=== PATIENT | male | born 1955 | race Caucasian/White ===

== ENCOUNTER 2017-03-20 16:03 | Emergency (ER) | payer OTHER ==
[2017-03-20] MEDS ORDERED: Albuterol 2.5 MG/3 ML NEB.SOL* (0.083%) INH ONE (19:04)
[2017-03-20] MEDS ORDERED: Ipratropium 0.5MG/2.5ML NEB* 0.5 MG/2.5 ML NEB.SOLN INH ONE (19:04)
[2017-03-20] MEDS ORDERED: guaiFENesin/CODIEN 100MG-10MG* 5 ML UDC PO ONE (19:35)
[2017-03-20] MEDS ORDERED: Acetaminop/Codeine 30 MG TAB* 1 TAB (300 MG/30 MG) PO ONE (19:51)
[2017-03-20 19:59] VITALS: BP 129/79
--- NOTE | 2017-03-20 20:18 | UC ---
Respiratory Complaint HPI - History of Current Complaint Chief Complaint: UCRespiratory Stated Complaint: COUGH Time Seen by Provider: 03/20/17 18:29 Hx Obtained From: Patient Onset/Duration: Gradual Onset, Lasting Days - 3 Timing: Constant Severity Initially: Moderate Severity Currently: Moderate Character: Cough: Nonproductive Aggravating Factors: Deep Breaths, Recumbent Position Alleviating Factors: Upright Position Associated Signs And Symptoms: Positive: Pleuritic Chest Pain, URI. Negative: Dyspnea, Fever, Chills, Nasal Congestion, Sinus Discomfort - Allergies/Home Medications Allergies/Adverse Reactions: Allergies Allergy/AdvReac Type Severity Reaction Status Date / Time No Known Allergies Allergy Verified 03/20/17 17:56 Home Medications: Home Medications Dextromethorphan-Phenylephrine [Es-Fenton Plus Day Col] 2 cap PO ONCE PRN 05/01 [History Confirmed 03/20/17] Naproxen [Naproxen 500 MG TABS] 1,000 mg PO DAILY PRN 03/20/17 [History Confirmed 03/20/17] Pseudoephedrine TAB* [Sudafed TAB*] 30 mg PO Q6H PRN 03/20/17 [History Confirmed 03/20/17] PMH/Surg Hx/FS Hx/Imm Hx Endocrine History Of: Reports: Diabetes - TYPE II - ON ORAL MEDICATION FOR Cardiovascular History Of: Denies: Hypertension, Pacemaker/ICD GI/ History Of: Denies: Renal Disease Psychological History Of: Reports: Anxiety - ON MEDICATION FOR, Depression - ON MEDICATION FOR - Surgical History Surgical History: Yes Surgery Procedure, Year, and Place: Rt. Surgery shoulder - TORN ROTATOR 2015. LASIX -EYE. vasectomly. L rotator cuff repair - Family History Known Family History: Positive: Cardiac Disease Negative: Hypertension, Diabetes - Social History Occupation: Employed Full-time Lives: With Family Alcohol Use: Occasionally Substance Use Type: None Smoking Status (MU): Former Smoker Type: Smokeless Tobacco Amount Used/How Often: nicorette gum daily Length of Time of Smoking/Using Tobacco: 20 yrs Have You Smoked in the Last Year: No Review of Systems Constitutional: Negative Skin: Negative Eyes: Negative ENT: Sore Throat, Nasal Discharge Respiratory: Cough Cardiovascular: Chest Pain - PLEURITIC Gastrointestinal: Negative Musculoskeletal: Myalgia Neurological: Negative Psychological: Negative All Other Systems Reviewed And Are Negative: Yes Physical Exam Triage Information Reviewed: Yes Appearance: Well-Appearing, No Pain Distress, Well-Nourished Vital Signs: Initial Vital Signs Temp 99.8 F 03/20/17 18:00 Pulse 90 03/20/17 18:00 Resp 18 03/20/17 18:00 BP 134/73 03/20/17 18:00 Pulse Ox 97 03/20/17 18:00 Vital Signs Reviewed: Yes Eyes: Positive: Conjunctiva Clear. Negative: Discharge ENT: Positive: Hearing grossly normal, Pharyngeal erythema, Nasal drainage, TMs normal. Negative: Nasal congestion, Tonsillar swelling, Trismus, Muffled/ hoarse voice Neck: Positive: Supple, Nontender, No Lymphadenopathy Respiratory: Positive: No respiratory distress, No accessory muscle use, Wheezing - FEW SCATTERED WHEEZES Cardiovascular: Positive: RRR, No Murmur Musculoskeletal Exam: Normal Neurological: Positive: Alert, Muscle Tone Normal Psychological: Positive: Age Appropriate Behavior Skin Exam: Normal UC Diagnostic Evaluation - Laboratory O2 Sat by Pulse Oximetry: 97 Respiratory Course/Dx - Course Course Of Treatment: pt with dusty given robitussin with codeine. decision made based on fact that pt sleep with cpap each night to maintain airway. further pt took vicodin s/p shoulder surg within the past year while on cpap with no complications. - Differential Dx/Diagnosis Differential Diagnosis/HQI/PQRI: Bronchitis, Lower Resp Infection, Sinusitis Provider Diagnoses: URI, BRONCHOSPASM Discharge - Discharge Plan Condition: Stable Disposition: HOME Prescriptions: Albuterol HFA INHALER* [Ventolin HFA Inhaler*] 2 puff INH Q4H PRN #1 mdi PRN Reason: Sob/Wheezing Benzonatate CAP* [Tessalon 100 MG CAP*] 100 mg PO TID #30 cap guaiFENesin ER TAB [Mucinex*] 600 mg PO BID PRN #1 box PRN Reason: Cough guaiFENesin/CODIEN 100MG-10MG* [Robitussin AC 100Mg-10Mg*] 5 - 10 ml PO BEDTIME PRN #100 udc MDD 10ml PRN Reason: Cough Patient Education Materials: Upper Respiratory Infection (ED), Bronchospasm (ED ) Referrals: Hossein Asencio MD [Primary Care Provider] - (FOLLOW UP ON 03/23/17 PLANNED.) Additional Instructions: INHALED BRONCHODILATORS: You have received a prescription for an inhaled bronchodilator -- a medication which stimulates the airways in the lung to dilate. This improves the flow of air in asthma, bronchitis, and emphysema. These medicines have some similarity to adrenaline, and can cause similar side effects: shakiness, racing heart, and a sense of nervousness. These side effects decrease with time. Contact your doctor if these side effects are severe. Do not over-use the medicine. Too-frequent use of the inhaler may make it ineffective. Call your doctor if the inhaler is not controlling your symptoms at the prescribed doses. COUGH-SUPPRESSANT & EXPECTORANT MEDICATION: You are to use a cough medication as needed for relief of symptoms. This medicine is a combination of an expectorant (to make the mucous thinner and more easily "coughed up") and a cough suppressant (to reduce the frequency of coughing). The cough-suppressant medicine is related to narcotics. You may experience mild nausea and sleepiness. Some patients who are very sensitive to narcotics may have stomach pain from this medicine. Taking the medicine with food reduces these side effects. Do not drive or work with machinery until you know how this medicine affects you. The expectorant should have no side effects. Iodine-containing expectorants (such as organidin) should not be taken by persons with active thyroid disease unless approved by your doctor. Call the doctor if you develop shortness of breath, hives, rash, itching, lightheadedness, or severe nausea and vomiting. THE ABOVE MEDICATION CAN MAKE YOU GROGGY AND UNSTABLE OF YOUR FEET. SO PLEASE TAKE CARE WHEN GOING FROM LAYING DOWN TO SEATED OR WHEN STANDING UP. IF YOU FEEL LIGHT HEADED WHEN CHANGING POSITIONS, PLEASE SIT OR LAY BACK DOWN TO AVOID FALLING. ESPECIALLY WHEN WAKING UP AT NIGHT TO PEE. EXPECTORANT MEDICATION: An expectorant medicine has been prescribed. This type of drug makes mucous thinner, helping the sinuses, nose, and bronchial tubes to remain free of pus and mucous. Expectorants make a cough less severe and more comfortable, and help infected sinuses drain. In general, antihistamines defeat the purpose of the expectorant by making mucous thicker. They should be avoided unless specifically recommended by your physician. TESSALON PERLES: You have received a prescription for Tessalon Perles (benzonatate). This is a non-narcotic medicine for relief of cough. It usually works in about 15- 20 minutes and lasts around four hours. Tessalon Perles should be swallowed. They should not be chewed or dissolved in the mouth (this can produce temporary numbing of the mouth and choking can occur). If you develop any adverse effects such as wheezing, shortness of breath, hives, rash, itching, or lightheadedness, please return at once.
== END 2017-03-20 20:07 | disposition home or self-care (01) ==
LOC: UCCORT 16:03
DX: J06.9 Acute upper respiratory infection, unspecified (principal); J98.01 Acute bronchospasm; E11.9 Type 2 diabetes mellitus without complications; Z79.84 Long term (current) use of oral hypoglycemic drugs; F41.8 Other specified anxiety disorders; Z87.891 Personal history of nicotine dependence
CPT/HCPCS: 99213; A9270-GY; G0463; J7644

== ENCOUNTER 2018-04-11 11:04 | Emergency (ER) | payer OTHER ==
[2018-04-11 11:31] VITALS: BP 147/74
--- NOTE | 2018-04-11 12:17 | UC ---
Skin Complaint HPI - HPI Summary HPI Summary: itching rash on left wrist and small patch on left calf---has not tried anything for relief of pain.i - History of Current Complaint Chief Complaint: UCRash Time Seen by Provider: 04/11/18 12:07 Stated Complaint: LEFT ARM SKIN COMPLAINT Hx Obtained From: Patient Onset/Duration: Gradual Onset, Lasting Days - 1, Still Present Skin Exposure Onset/Duration: Minutes Ago Timing: Constant Onset Severity: Mild Current Severity: Mild Pain Intensity: 0 Location: Discrete Character: Hives, Redness Aggravating Factor(s): Nothing Alleviating Factor(s): Nothing Associated Signs & Symptoms: Positive: Rash Related History: Possible Reaction to: Environmental Exposure - Allergy/Home Medications Allergies/Adverse Reactions: Allergies Allergy/AdvReac Type Severity Reaction Status Date / Time No Known Allergies Allergy Verified 04/11/18 11:21 Review of Systems Constitutional: Negative Skin: Rash Eyes: Negative ENT: Negative Respiratory: Negative Cardiovascular: Negative Gastrointestinal: Negative Genitourinary: Negative Motor: Negative Neurovascular: Negative Musculoskeletal: Negative Neurological: Negative Psychological: Negative Is Patient Immunocompromised?: No All Other Systems Reviewed And Are Negative: Yes PMH/Surg Hx/FS Hx/Imm Hx - Additional Past Medical History Additional PMH: Metabolic that Previously Healthy: No Endocrine History: Diabetes Psychological History: Anxiety - Surgical History Surgical History: Yes Surgery Procedure, Year, and Place: Rt. Surgery shoulder - TORN ROTATOR 2015. LASIX -EYE. vasectomly. L rotator cuff repair - Family History Known Family History: Positive: Cardiac Disease Negative: Hypertension, Diabetes - Social History Occupation: Employed Full-time Lives: With Family Alcohol Use: Occasionally Substance Use Type: None Smoking Status (MU): Former Smoker Type: Smokeless Tobacco Amount Used/How Often: \ Length of Time of Smoking/Using Tobacco: 20 yrs Have You Smoked in the Last Year: No Physical Exam Triage Information Reviewed: Yes Appearance: Well-Appearing, No Pain Distress, Well-Nourished Vital Signs: Initial Vital Signs Temp 97.4 F 04/11/18 11:23 Pulse 89 04/11/18 11:23 Resp 18 04/11/18 11:23 BP 147/74 04/11/18 11:23 Pulse Ox 97 04/11/18 11:23 Vital Signs Reviewed: Yes Eye Exam: Normal Eyes: Positive: Conjunctiva Clear ENT Exam: Normal ENT: Positive: Normal ENT inspection, Hearing grossly normal, Pharynx normal, TMs normal. Negative: Nasal congestion, Trismus, Muffled voice, Hoarse voice, Dental tenderness, Sinus tenderness Dental Exam: Normal Neck exam: Normal Neck: Positive: Supple, Nontender, No Lymphadenopathy Respiratory Exam: Normal Respiratory: Positive: Chest non-tender, Lungs clear, Normal breath sounds, No respiratory distress, No accessory muscle use Cardiovascular Exam: Normal Cardiovascular: Positive: RRR, No Murmur, Pulses Normal, Brisk Capillary Refill Musculoskeletal Exam: Normal Musculoskeletal: Positive: Strength Intact, ROM Intact, No Edema Neurological Exam: Normal Neurological: Positive: Alert, Muscle Tone Normal Psychological Exam: Normal Skin: Positive: rashes Course/Dx - Course Course Of Treatment: lidex, benadryl, cool compresses,obseve for s/s of elevated blood sugar---follow with pcp - Diagnoses Provider Diagnoses: poision Serena left wrsit and calf Discharge - Sign-Out/Discharge Documenting (check all that apply): Discharge/Admit/Transfer - Discharge Plan Condition: Stable Disposition: HOME Prescriptions: Fluocinonide 0.05% CM(NF) [Lidex 0.05% CREAM(NF)] 1 applic TOPICAL TID #30 gm Patient Education Materials: Diphenhydramine (By mouth), Poison Serena (ED), Hypertension (ED), Diabetic Hyperglycemia (ED), Cold Compress or Soak (ED), Mediterranean Diet (DC), Diabetes and Exercise (ED) Referrals: Hossein Asencio MD [Primary Care Provider] - 1 Week Additional Instructions: I have enclosed information about hyperglycemia (elevated blood sugar), and some diet and exercise suggestions - Billing Disposition and Condition Condition: STABLE Disposition: HOME
== END 2018-04-11 12:32 | disposition home or self-care (01) ==
LOC: UCCORT 11:04
DX: L23.7 Allergic contact dermatitis due to plants, except food (principal); T63.791A Toxic effect of contact with other venomous plant, accidental (unintentional), initial encounter; Y92.9 Unspecified place or not applicable; Z87.891 Personal history of nicotine dependence
CPT/HCPCS: 99211; G0463

== ENCOUNTER 2019-10-22 10:53 | Emergency (ER) | payer OTHER ==
[2019-10-22 11:22] VITALS: BP 151/92
--- NOTE | 2019-10-22 11:42 | UC ---
Skin Complaint HPI - HPI Summary HPI Summary: 64 year old diabetic male presents with complaint of right arm pit pustules that started a couple of weeks ago. Denies drainage currently, no fever, no significant pain.Take metformin for his diabetes and has overall been well controlled however, has been consuming more sweets recently. Due for a f/u with his PCP within the next couple of weeks. - History of Current Complaint Chief Complaint: UCSkin Time Seen by Provider: 10/22/19 11:25 Stated Complaint: RIGHT ARMPIT SKIN Hx Obtained From: Patient Onset/Duration: Gradual Onset, Lasting Weeks - two Pain Intensity: 0 - Allergy/Home Medications Allergies/Adverse Reactions: Allergies Allergy/AdvReac Type Severity Reaction Status Date / Time pollen extracts Allergy Eyes Verified 10/22/19 11:25 Itchy/Swollen/Red/Watery Home Medications: Home Medications Blood Pressure Med 10/22/19 [History] Fluocinonide 0.05% CM(NF) [Lidex 0.05% CREAM(NF)] 1 applic TOPICAL TID PRN 10/22 [History Confirmed 10/22/19] PMH/Surg Hx/FS Hx/Imm Hx Endocrine History: Diabetes - Surgical History Surgical History: Yes Surgery Procedure, Year, and Place: Rt. Surgery shoulder - TORN ROTATOR 2015. LASIX -EYE. vasectomly. L rotator cuff repair - Family History Known Family History: Positive: Cardiac Disease Negative: Hypertension, Diabetes - Social History Alcohol Use: Rare Substance Use Type: None Smoking Status (MU): Former Smoker Type: Smokeless Tobacco Amount Used/How Often: \ Length of Time of Smoking/Using Tobacco: 20 yrs Have You Smoked in the Last Year: No When Did the Patient Quit Smoking/Using Tobacco: 5 yrs ago Review of Systems All Other Systems Reviewed And Are Negative: Yes Constitutional: Negative: Fever, Chills, Fatigue Skin: Positive: Rash - Right armpit with boils, will occasionally drain. ENT: Positive: Negative Respiratory: Positive: Negative Cardiovascular: Positive: Negative Gastrointestinal: Positive: Negative Genitourinary: Positive: Negative Motor: Positive: Negative Neurovascular: Positive: Negative Musculoskeletal: Positive: Negative Neurological: Positive: Negative Psychological: Positive: Negative Is Patient Immunocompromised?: No Physical Exam Appearance: Well-Appearing Vital Signs: Initial Vital Signs Temp 98.1 F 10/22/19 11:15 Pulse 82 10/22/19 11:15 Resp 18 10/22/19 11:15 BP 151/92 10/22/19 11:15 Pulse Ox 97 10/22/19 11:15 Vital Signs Reviewed: Yes Eye Exam: Normal ENT Exam: Normal Neck: Positive: Supple, Nontender, No Lymphadenopathy Respiratory: Positive: Lungs clear, Normal breath sounds, No respiratory distress Cardiovascular: Positive: RRR, No Murmur Abdomen Description: Positive: Nontender, No Organomegaly Musculoskeletal Exam: Normal Neurological Exam: Normal Psychological Exam: Normal Skin: Positive: Significant Lesion(s) - Right axilla with multiple carbuncles. Nontender. None with fluctuance. One with a head that was I&D'd to obtain culture and sensitivities. Procedures - Sedation Patient Received Moderate/Deep Sedation with Procedure: No - Incision and Drainage Right Axilla Anesthesia: Other - none Instrument(s): Scalpel Packing: Other - none Course/Dx - Course Course Of Treatment: I&D of pustule obtained for for culture. Treated with Doxycycline oral and Clindamycin topical. - Diagnoses Provider Diagnosis: Hidradenitis suppurativa Discharge ED - Sign-Out/Discharge Documenting (check all that apply): Patient Departure All imaging exams completed and their final reports reviewed: No Studies - Discharge Plan Condition: Stable Disposition: HOME Prescriptions: Clindamycin Phosphate [Clindagel] 1 % TOPICAL BID 10 Days #1 tube DOXYcycline CAP(*) [DOXYcycline 100MG CAP(*)] 100 mg PO BID 10 Days #20 cap Patient Education Materials: Furunculosis and Carbunculosis (ED) Referrals: Hossein Asencio MD [Primary Care Provider] - Additional Instructions: Apply topical antibiotic and take oral antibiotic as prescribed. Warm pack right armpit. Follow-up with your Primary Care physician in the next 7-10 days for re-check and evaluation of your diabetes. - Billing Disposition and Condition Condition: STABLE Disposition: Home
--- NOTE | 2019-10-22 17:30 | UC ---
- Progress Note Progress Note: Lab report reviewed today. Initial wound culture PCR final: MRSA positive, staph aureus positive Sensitivity pending at this time. Patient on topical clindamycin and doxycycline. Doxycycline should cover MRSA No change at this time Await final sensitivity report. Course/Dx - Diagnoses Provider Diagnoses: Hidradenitis suppurativa Discharge ED - Sign-Out/Discharge Documenting (check all that apply): Post-Discharge Follow Up All imaging exams completed and their final reports reviewed: No Studies - Discharge Plan Condition: Stable Disposition: HOME Prescriptions: Clindamycin Phosphate [Clindagel] 1 % TOPICAL BID 10 Days #1 tube DOXYcycline CAP(*) [DOXYcycline 100MG CAP(*)] 100 mg PO BID 10 Days #20 cap Patient Education Materials: Furunculosis and Carbunculosis (ED) Referrals: Hossein Asencio MD [Primary Care Provider] - Additional Instructions: Apply topical antibiotic and take oral antibiotic as prescribed. Warm pack right armpit. Follow-up with your Primary Care physician in the next 7-10 days for re-check and evaluation of your diabetes. - Billing Disposition and Condition Condition: STABLE Disposition: Home
== END 2019-10-22 12:11 | disposition home or self-care (01) ==
LOC: UCCORT 10:53
DX: L73.2 Hidradenitis suppurativa (principal); E11.9 Type 2 diabetes mellitus without complications; Z91.09 Other allergy status, other than to drugs and biological substances; Z87.891 Personal history of nicotine dependence
CPT/HCPCS: 10060; 87070; 87077; 87186; 87205; 87640; 87641; 99212; G0463